=== PATIENT | female | born 1950 | race Caucasian/White ===

== ENCOUNTER → 2023-02-04 | Outpatient (CLI) | LOC: M LABSMTC 08:42 | PROVIDERS: ATTEND Anesthesiology | DX: Z01.818 Encounter for other preprocedural examination (principal); Z11.52 Encounter for screening for COVID-19 ==

== ENCOUNTER 2023-02-07 08:39 | Day surgery (SDC) | payer MEDICARE ==
[~2023-02-07] VITALS: Ht 160 cm; Wt 55.3 kg
[~2023-02-07 08:39] MED LIST: BSS IRRIG/VANCO(10MG)/TOBRA(5MG)/EPINEPH(1:1000-0.5CC)500ML BAG-ORONLY IR ONE; CEFUROXIME 1MG/0.1ML INTRACAMERAL INJ As Ordered ONE; LIDOCAINE 1% SDV 5ML VIAL As Ordered ONE; LIDOCAINE 3.5 % 1ML OPHTH TOPICAL GEL OU ONE; MIDAZOLAM INJ 2MG/2ML VIAL As Ordered ONE; OFLOXACIN 0.3 % (OCUFLOX) OPTH SOL 5ML OD ONE; PHENYLEPHRINE 10% OPHTH SOL 5ML OD PRN; fentaNYL 100 MCG/2 ML INJECTION As Ordered ONE
[2023-02-07] MEDS: TROPICAMIDE 1% OPHTH SOLN 15ML OD SCH ×3 (09:10→09:24)
[2023-02-07] MEDS: PHENYLEPHRINE 2.5% OPHTH SOL 2ML OD SCH ×3 (09:10→09:24)
[2023-02-07] MEDS: CYCLOPENTOLATE 1% OPHTH SOLN 2ML BTL OD SCH ×3 (09:10→09:24)
[2023-02-07 10:55] VITALS: BP 153/72
== END 2023-02-07 11:15 | disposition home or self-care (01) ==
LOC: M SDC 08:39 → EDUNIT# 14:30
PROVIDERS: ATTEND Ophthalmology
DX: H25.11 Age-related nuclear cataract, right eye (principal); I35.0 Nonrheumatic aortic (valve) stenosis; M06.9 Rheumatoid arthritis, unspecified; Z90.710 Acquired absence of both cervix and uterus
CPT/HCPCS: 66984; 92015; J0697; J2250; J3010; V2632

== ENCOUNTER 2023-02-27 08:20 | Day surgery (SDC) | payer MEDICARE ==
[~2023-02-27] VITALS: Ht 160 cm; Wt 57.6 kg
[~2023-02-27 08:20] MED LIST changes: +CYCLOPENTOLATE 1% OPHTH SOLN 2ML BTL OS SCH; -MIDAZOLAM INJ 2MG/2ML VIAL As Ordered ONE; -OFLOXACIN 0.3 % (OCUFLOX) OPTH SOL 5ML OD ONE; +OFLOXACIN 0.3 % (OCUFLOX) OPTH SOL 5ML OS ONE; -PHENYLEPHRINE 10% OPHTH SOL 5ML OD PRN; +PHENYLEPHRINE 10% OPHTH SOL 5ML OS PRN; +PHENYLEPHRINE 2.5% OPHTH SOL 2ML OS SCH; +RA M500C PO; +TROPICAMIDE 1% OPHTH SOLN 15ML OS SCH; +VITATAB64 PO; +[UNRECOGNIZED DRUG - OTHER] PO; +[UNRECOGNIZED DRUG - OTHER] PO; -fentaNYL 100 MCG/2 ML INJECTION As Ordered ONE
[2023-02-27] MEDS ORDERED: MIDAZOLAM INJ 2MG/2ML VIAL As Ordered ONE (09:35)
[2023-02-27] MEDS ORDERED: fentaNYL 100 MCG/2 ML INJECTION As Ordered ONE (09:36)
[2023-02-27 10:49] VITALS: BP 155/77
== END 2023-02-27 11:32 | disposition home or self-care (01) ==
LOC: M SDC 08:20
PROVIDERS: ATTEND Ophthalmology
DX: H25.12 Age-related nuclear cataract, left eye (principal); I34.89 Other nonrheumatic mitral valve disorders; M06.9 Rheumatoid arthritis, unspecified; F41.9 Anxiety disorder, unspecified; Z79.899 Other long term (current) drug therapy
CPT/HCPCS: 66984; 92015; J0697; J2250; J3010; V2632

== ENCOUNTER → 2024-09-18 | Outpatient (CLI) | payer MEDICARE ==
[~2024-09-18] MED LIST changes: -BSS IRRIG/VANCO(10MG)/TOBRA(5MG)/EPINEPH(1:1000-0.5CC)500ML BAG-ORONLY IR ONE; -CEFUROXIME 1MG/0.1ML INTRACAMERAL INJ As Ordered ONE; -CYCLOPENTOLATE 1% OPHTH SOLN 2ML BTL OS SCH; -LIDOCAINE 1% SDV 5ML VIAL As Ordered ONE; -LIDOCAINE 3.5 % 1ML OPHTH TOPICAL GEL OU ONE; -OFLOXACIN 0.3 % (OCUFLOX) OPTH SOL 5ML OS ONE; -PHENYLEPHRINE 10% OPHTH SOL 5ML OS PRN; -PHENYLEPHRINE 2.5% OPHTH SOL 2ML OS SCH; +PROHANCE 279.3MG/ML 5ML VIAL ONE; -TROPICAMIDE 1% OPHTH SOLN 15ML OS SCH
== END ==
LOC: M PLAIMG 09:20
PROVIDERS: ATTEND Ophthalmology
DX: H46.8 Other optic neuritis (principal); Z98.41 Cataract extraction status, right eye; Z98.42 Cataract extraction status, left eye
CPT/HCPCS: 70543; A9576